=== PATIENT | female | born 1980 | race Hispanic/Latino ===

== ENCOUNTER 2017-04-12 09:57 | Day surgery (SDC) | payer BC ==
[2017-04-12] MEDS ORDERED: ROBINUL ONE (11:30)
[2017-04-12] MEDS ORDERED: ZOFRAN ONE (11:30)
[2017-04-12] MEDS ORDERED: TORADOL ONE (11:30)
[2017-04-12] MEDS ORDERED: DECADRON ONE (11:30)
[2017-04-12] MEDS ORDERED: MORPHINE IV PRN ×2 (11:31→14:12)
[2017-04-12] MEDS ORDERED: ZOFRAN IV PRN ×2 (11:31→14:12)
--- NOTE | 2017-04-12 11:36 | Anesthesia Consultation ---
Anesthesia Consult and Med Hx Date of service: 04/12/17 - Airway Anesthetic Teeth Evaluation: Good ROM Head & Neck: Adequate Mental/Hyoid Distance: Adequate Mallampati Class: Class II Intubation Access Assessment: Probably Good - Pulmonary Exam CTA: Yes - Cardiac Exam Cardiac Exam: RRR - Pre-Operative Health Status ASA Pre-Surgery Classification: ASA2 Proposed Anesthetic Plan: General - Pulmonary Hx Smoking: No Hx Sleep Apnea: No - Central Nervous System Hx Neuromuscular Disorder: No (migraines) - Gastrointestinal Hx Gastroesophageal Reflux Disease: Yes - Endocrine Hx Thyroid Disease: Yes Hx Hypothyroidism: Yes - Other Systems Hx Obesity: Yes
--- NOTE | 2017-04-12 11:37 | Anesthesia Day of Surgery ---
Anesthesia Day of Surgery - Day of Surgery Patient Examined: Yes Patient is NPO: Yes
[2017-04-12] MEDS ORDERED: DIPRIVAN 10 MG/ML IV ONE ×2 (11:52→12:52)
[2017-04-12] MEDS ORDERED: SUBLIMAZE ONE (11:52)
[2017-04-12] MEDS ORDERED: XYLOCAINE MPF 2% ONE (11:54)
[2017-04-12] MEDS ORDERED: ZEMURON IV ONE (11:54)
[2017-04-12] MEDS ORDERED: VERSED IV NR (12:00)
[2017-04-12] MEDS ORDERED: LACTATED RINGERS 1,000 ML IV SCH (12:00)
[2017-04-12] MEDS ORDERED: PEPCID PO NR (12:00)
[2017-04-12] MEDS ORDERED: ANCEF/STERILE WATER 2 GM/20 ML 2 GM/20 ML SYRINGE IV ONE (12:11)
[2017-04-12] MEDS ORDERED: MARCAINE 0.5% INFILTRATI ONE (12:21)
[2017-04-12] MEDS ORDERED: NACL 0.9% IR ONE (12:22)
[2017-04-12] MEDS ORDERED: DILAUDID ONE (12:47)
[2017-04-12] MEDS ORDERED: MARCAINE 0.5% 30 ML INFILTRATI ONE (13:00)
--- NOTE | 2017-04-12 13:34 | Short Stay Summary ---
Short Stay Documentation Date of service: 04/12/17 Narrative H&P: see H&P - Allergies and Medications Current Medications: Allergies No Known Allergies Allergy (Unverified 04/12/17 11:10) Home Medications Medication Instructions Recorded Confirmed Last Taken Type Levothyroxine 88 PO 04/12/17 04/11/17 History Omeprazole [Omeprazole] 04/12/17 04/12/17 06:30 History Active Medications Lactated Ringer's (Lactated Ringers) 1,000 mls @ 75 mls/hr IV DIRECT MERLINE Last Admin: 04/12/17 11:53 Dose: 75 mls/hr Midazolam HCl (Versed) 2 mg IV PREOP NR Stop: 04/12/17 23:59 - Brief post op/procedure progress note Date of procedure: 04/12/17 Pre-op diagnosis: uninodular goiter Post-op diagnosis: same Procedure: R. thyroid lobectomy Anesthesia: GETA Findings: R thyroid mass Surgeon: KAITLYNN AGARWAL Home Teaching Grades 9 Thru 12 Teacher: MAC GONZALEZ Estimated blood loss: none Pathology: list (R. thyroid lobe) Specimen disposition: to lab Condition: stable Short Stay Discharge Plan Activity: advance as tolerated Weight Bearing Status: Weight Bear as Tolerated Diet: regular Wound: keep clean and dry Follow up with: KAITLYNN AGARWAL MD [Staff Physician] - 7 Days
--- NOTE | 2017-04-12 14:43 | Operative Report ---
PREOPERATIVE DIAGNOSIS: Right unilateral goiter. POSTOPERATIVE DIAGNOSIS: Right unilateral goiter. PROCEDURE: Right thyroid lobectomy. SURGEON: Elmer Pizarro MD ENGINEERING TEACHER: Angela Brooks DO ANESTHESIA: General. ESTIMATED BLOOD LOSS: Minimal. COMPLICATIONS: None. DRAINS: No drains. SPECIMENS: Right thyroid lobe. The patient tolerated the procedure well. Findings were enlarged right thyroid lobe, firm right thyroid lobe, consistent with Jessica's thyroiditis. INDICATION: This is a 36-year-old female with right thyroid mass here for right thyroid lobectomy. DESCRIPTION OF PROCEDURE: The patient taken to the OR and placed on the operating table. Once general anesthesia was obtained, her neck was extended with the help of a shoulder roll. Neck and chest wall were prepped and draped in sterile fashion. Transverse collar incision made approximately 4 cm in length. Incision was taken to the subcutaneous tissue through the platysma. Flaps were raised superiorly and inferiorly exposing midline neck. Strap muscles incised in midline and exposed the thyroid proper. We started on the right thyroid lobe. The right thyroid lobe was mobilized medially. Strap muscles dissected laterally. The superior, inferior and middle thyroid vessels were isolated, coagulated and transected with LigaSure device and thyroid was manipulated in the operative field. She did have a firm to dense thyroid with a nodule in the mid to inferior aspect of the thyroid. Thyroid was immobilized with across the isthmus. The superior and inferior parathyroid both left intact in the operative field and the recurrent laryngeal nerve was rechecked by nerve stimulator, tested and found to be intact. The thyroid was taken out of isthmus and then transected and sent as specimen. Small rim of thyroid was left right on top of the recurrent laryngeal nerve. After adequate hemostasis, Tisseel was placed on the wound bed. Strap muscles approximated with 3-0 Vicryl. Subcutaneous tissues approximated with 3-0 Vicryl, skin was approximated subcuticular technique and Dermabond was placed on the incision. The patient tolerated the procedure well. JOB# [id number] RONY/MACIEJ
[2017-04-12 15:38] VITALS: BP 118/75
--- NOTE | 2017-04-13 03:49 | Post Anesthesia Evaluation ---
- Post Anesthesia Evaluation Patient Participated: Yes Airway Patent: Yes Stable Respiratory Function: Yes Nausea/Vomiting: No Temp > 96.8F: Yes Pain Manageable: Yes Adequeate Hydration: Yes Anesthesia Complications: No Block Receding Appropriately: Not Applicable Patient on Ventilator: No Other Comments: LATE ENTRY
== END 2017-04-12 15:52 | disposition home or self-care (01) ==
LOC: OR 09:57
PROVIDERS: ATTEND Surgery
DX: E06.3 Autoimmune thyroiditis (principal); E04.1 Nontoxic single thyroid nodule; E03.9 Hypothyroidism, unspecified; K21.9 Gastro-esophageal reflux disease without esophagitis; E66.9 Obesity, unspecified; Z68.30 Body mass index [BMI] 30.0-30.9, adult; Z79.899 Other long term (current) drug therapy
CPT/HCPCS: 60220; 81025; 88307; C9250; J0690; J1100; J1170; J1885; J2250; J2405; J2704; J3010; J7120